=== PATIENT | female | born 1990 | race Caucasian/White ===

== ENCOUNTER 2022-02-13 00:40 | Emergency (ER) | payer MEDICAID ==
[~2022-02-13] VITALS: Ht 160 cm; Wt 50.8 kg
[2022-02-13 01:05] VITALS: BP_SYST 107
[2022-02-13 01:52] LABS: HCG,QUAL RESULT NEGATIVE (NEGATIVE)
[2022-02-13] MEDS ORDERED: HYDR-3917 PO (01:54)
[2022-02-13] MEDS ORDERED: IBUP-1969 PO (01:54)
[2022-02-13] MEDS ORDERED: traMADol HCL HCL 50 MG TABLET (ULTRAM) PO ONE (02:00)
[2022-02-13 02:09] VITALS: BP_SYST 108
== END 2022-02-13 02:09 | disposition home or self-care (01) ==
LOC: SED 00:40
DX: S13.4XXA Sprain of ligaments of cervical spine, initial encounter (principal); F07.81 Postconcussional syndrome; Z79.899 Other long term (current) drug therapy; W01.0XXA Fall on same level from slipping, tripping and stumbling without subsequent striking against object, initial encounter; Y93.89 Activity, other specified; Y92.89 Other specified places as the place of occurrence of the external cause; Y99.8 Other external cause status
CPT/HCPCS: 81025; 84703; 99283